=== PATIENT | female | born 1995 | race Caucasian/White ===

== ENCOUNTER 2016-10-09 21:15 | Emergency (ER) | payer OTHER ==
[~2016-10-09] VITALS: Ht 154.9 cm; Wt 47.5 kg
[~2016-10-09 21:15] MED LIST: ACET325T33 PO; NITR-58 PO; ONDA4TAB14 PO
[2016-10-09 21:46] VITALS: Ht 154.9 cm; Wt 47.5 kg
[2016-10-09] MEDS ORDERED: KETOROLAC 30 MG INJ IV STA (23:04)
[2016-10-09] MEDS ORDERED: ONDANSETRON 4 MG INJ IV STA (23:04)
--- NOTE | 2016-10-09 23:04 | ERD ---
ER Documentation Chief Complaint Date/Time DATE: 10/09/16 TIME: 22:59 Chief Complaint AP RLQ since 1400 with vomiting and feeling weak HPI 21-year-old female presented emergency room for right-sided abdominal pain that started around 2 PM today. Pain was described as sharp and non-radiating. She also stated that she has blood in your urine. Added that she is nauseous but no vomiting. He also stated that her pain is more on her right lower quadrant at this time. She has difficulty walking due to her right-sided abdominal pain. Denies headache, loss of consciousness, dizziness, blurry vision, changes in vision, photophobia, facial pain, ear pain, throat pain, difficulty swallowing, neck pain, shoulder pain, chest pain, cough, hemoptysis, abdominal pain, back pain, loss of appetite, vomiting, hematochezia, diarrhea, constipation, , the possibility of being , bladder and bowel incontinences, extremity weakness, extremity tenderness, numbness or tingling sensation, recent travel, recent exposure to illness, recent antibiotic use in the last 3 months, fever, chills. Allergy: No known drug allergies. PMH: Denies. Family medical history: Denies. AO LMP: "2 days ago." Stated that she has an IUD. Medications: Denies. Surgery: Denies. Primary Social History: Stated that she works at the [employer]. Denies smoking, use of alcohol, use of illegal drugs. ROS All systems reviewed and are negative except as per history of present illness. Medications Home Meds Active Scripts Acetaminophen* (Tylenol*) 325 Mg Tablet, 1 TAB PO Q6 Y for PAIN AND OR ELEVATED TEMP, #20 TAB Prov:DANIELLE WREN PA-C 05/03/16 Ondansetron (Ondansetron Odt) 4 Mg Tab.rapdis, 4 MG PO Q6H Y for NAUSEA AND/OR VOMITING, #10 TAB Prov:DANIELLE WREN PA-C 05/03/16 Nitrofurantoin Monohyd Macrocr* (Macrobid*) 100 Mg Capsr, 100 MG PO BID for 7 Days, CAP Prov:DANIELLE WREN PA-C 05/03/16 Allergies Allergies: Coded Allergies: No Known Allergy (Unverified , 12/22/13) PMhx/Soc History of Surgery: No Anesthesia Reaction: No Hx Neurological Disorder: No Hx Respiratory Disorders: No Hx Cardiac Disorders: No Hx Psychiatric Problems: No Hx Miscellaneous Medical Probl: Yes (UTI) Hx Alcohol Use: No Hx Substance Use: No Hx Tobacco Use: No Smoking Status: Never smoker Physical Exam Vitals Vital Signs Date Time Temp Pulse Resp B/P Pulse Ox O2 Delivery O2 Flow Rate FiO2 10/09/16 21:46 99.4 80 20 144/67 100 Physical Exam CONSTITUTIONAL: Well-appearing; well-nourished; in no apparent distress. HEAD: Normocephalic; atraumatic. EYES: Conjunctiva clear, sclera non-icteric, EOM intact. PERRL Ears: Hearing intact. EACs clear, TMs non-bulging, non-inflamed, translucent & mobile, ossicles normal appearance, No obstructions, no erythema, no discharges Nose: No obstructions. No polyps. No external lesions. Mucosa non-inflamed. No external lesions, septum and turbinates normal. No rhinorrhea. No discharges. Frontal sinus is non-tender to palpation. Maxillary sinus is non-tender to palpation. MOUTH: Moist mucous membranes, no lesion, no obstructions, no vesicles, no thrush, patent airway Throat: Uvula in midline. Right tonsil is +1 with no erythema, no exudate. Left tonsil is +1 with no erythema, no exudate. Tolerating secretions well. Good gag reflex. Patent airway. Neck: Supple, without lesions, bruits, or adenopathy. No mass. Thyroid non- enlarged and non-tender to palpation. CHEST: Symmetrical chest. Respirations even and not labored. No retractions noted. CARDIOVASCULAR: Normal S1, S2. RRR. No murmurs, gallops. RESPIRATORY: Normal chest excursion with respiration; breath sounds clear and equal bilaterally; no wheezes, rhonchi, or rales. Breathing even and unlabored. Speaking in clear, full, and complete sentences w/ ease. ABDOMEN: Normal bowel sounds normal. Soft, round, non-distended, non-guarding, no organomegaly, no masses, no pulsating abdominal mass. No hernia. No peritoneal signs. Right lower abdominal tenderness on light and deep palpation. Has some mild rebound on palpation to right lower abdominal area. Patient developed right sided abdominal pain after jumping twice. Positive and Inez sign. : Right-sided CVA tenderness. BACK: Symmetrical shoulder. Spine is midline without deformity, tenderness. No evidence of trauma or deformity. PELVIS: Stable pelvis. No evidence of trauma or deformity. MUSCULOSKELETAL: Normal gait and station. No misalignment, asymmetry, crepitation, defects, tenderness, masses, effusions, decreased range of motion, instability, atrophy or abnormal strength or tone in the head, neck, spine, ribs , pelvis or extremities. No calf tenderness. NEUROVASCULAR: Distal pulses are present. Pedal pulse are present, equal, and normal. Capillary refills are < 2 seconds. NEUROLOGIC: Alert and oriented x4. Speaks full and clear sentences. Cranial Nerves II-XII normal. Sensation to pain, touch, and proprioception normal. Grossly unremarkable. No neurologic deficits. Romberg test is negative. PSYCHOLOGICAL: The patients mood and manner are appropriate. No hallucinations , delusions. Not SI. Not HI. Has the capacity to decide for self SKIN: Normal for age and ethnicity; warm; dry; good turgor; no apparent lesions or exudates. No rashes, hives, discoloration. Intact. Result Diagram: 10/09/16 2325 10/09/16 2325 Results 24 hrs Laboratory Tests Test 10/09/16 23:25 10/10/16 00:54 White Blood Count 7.510^3/ul Red Blood Count 4.1810^6/ul Hemoglobin 13.1g/dl Hematocrit 38.1% Mean Corpuscular Volume 91.1fl Mean Corpuscular Hemoglobin 31.3pg Mean Corpuscular Hemoglobin Concent 34.4g/dl Red Cell Distribution Width 12.4% Platelet Count 00247^3/UL Mean Platelet Volume 10.6fl Neutrophils % 75.7% Lymphocytes % 11.8% Monocytes % 11.5% Eosinophils % 0.3% Basophils % 0.3% Nucleated Red Blood Cells % 0.0/100WBC Neutrophils # 5.710^3/ul Lymphocytes # 0.910^3/ul Monocytes # 0.910^3/ul Eosinophils # 0.010^3/ul Basophils # 0.010^3/ul Nucleated Red Blood Cells # 0.010^3/ul Sodium Level 141mmol/L Potassium Level 3.7mmol/L Chloride Level 105mmol/L Carbon Dioxide Level 28mmol/L Anion Gap 12 Blood Urea Nitrogen 10mg/dl Creatinine 0.87mg/dl Glucose Level 101mg/dl Calcium Level 9.2mg/dl Total Bilirubin 0.5mg/dl Direct Bilirubin 0.00mg/dl Indirect Bilirubin 0.5mg/dl Aspartate Amino Transf (AST/SGOT) 21IU/L Alanine Aminotransferase (ALT/SGPT) 9IU/L Alkaline Phosphatase 60IU/L Total Protein 8.1g/dl Albumin 4.3g/dl Globulin 3.80g/dl Albumin/Globulin Ratio 1.13 Amylase Level 98U/L Lipase 117U/L Serum HCG, Qualitative NEGATIVE Urine Color LT. YELLOW Urine Clarity CLEAR Urine pH 6.5 Urine Specific [place] 1.010 Urine Ketones NEGATIVE Urine Nitrite NEGATIVE Urine Bilirubin NEGATIVE Urine Urobilinogen 0.2 E.U./dL Urine Leukocyte Esterase NEGATIVE Urine Microscopic RBC 0-2/HPF Urine Microscopic WBC 0-2/HPF Urine Squamous Epithelial Cells FEW Urine Bacteria RARE Urine Hemoglobin TRACE Urine Glucose NEGATIVE% Urine Total Protein 2+ Current Medications Medications (Trade) Dose Ordered Sig/Antonio Route PRN Reason Start Time Stop Time Status Last Admin Dose Admin Ondansetron HCl (Zofran Inj) 4 mg ONCE STAT IV 10/09/16 23:04 10/09/16 23:07 DC 10/09/16 23:48 Ketorolac Tromethamine (Toradol) 30 mg ONCE STAT IV 10/09/16 23:04 10/09/16 23:07 DC 10/09/16 23:48 Procedures/MDM Examination: See physical examination. Disease process, medical treatment was explained to the patient and family member. They verbalized understanding and agreed with the diagnostic tests, medical treatment, and follow-up care. Radiology: CT of the abdomen and pelvis Impression: 1. Particular material in mildly distended stomach. 2. No CT evidence for appendicitis. 3. Shotty mesenteric lymph nodes. 4. Intrauterine device. 01:[address] Tobias, the radiologist who read the CT of the abdomen and pelvis. I asked him what he meant by "particulate material in mildly distended stomach" ? He said it is a food particle and nothing acute. Blood works: Reviewed. POC urine : Negative. Urinalysis: Treatment: IV insertion. Toradol IV. Zofran IV. Re-evaluation: Denies pain. No right upper abdominal tenderness. No right lower abdominal tenderness. No pelvic tenderness. No CVA tenderness. Ambulatory with steady gait. Able to jump 5 times without abdominal pain. No nausea and vomiting. Consultation: None. Differential diagnosis: Appendicitis versus nephrolithiasis Medical decision makin-year-old female presented emergency room for right- sided abdominal pain that started around 2 PM today. Pain was described as sharp and non-radiating. She also stated that she has blood in your urine. Added that she is nauseous but no vomiting. He also stated that her pain is more on her right lower quadrant at this time. She has difficulty walking due to her right-sided abdominal pain. Patient's complaint, patient's history about her complaint, patient's presentation, my physical findings, diagnostic test results, my reevaluation are consistent with my final diagnosis of abdominal pain. Medications prescribed are the following: Motrin. Tylenol. Zofran. Patient and family member are made aware of the side effects and adverse reactions of the medications prescribed. Instructed on when to seek emergent and medical attention in case allergic/anaphylactic reactions or severe side effects and or adverse reactions to medications. Patient and family member verbalized understanding. Patient instructed Instructed to follow-up with his PCP in 24-48 hours. Patient stated that she will see her primary care physician the next 24 hours. Instructed to Call 911 for chest pain, shortness of breath. Advised to come back here in ED as soon as possible for severity of symptoms which includes but not limited to: any new symptoms; shortness of breath/difficulty of breathing; cardiovascular changes; severe gastrointestinal symptoms; signs and symptoms of bleeding and or infection; signs of compartment syndrome/neurovascular changes; neurological changes/deficits. Patient and family member verbalized understanding. Upon discharge, patient is alert and oriented x 4, speaks full and clear sentences, denies pain, has no neurological deficits, has no neurovascular deficits, difficulty of breathing. Breathing even and unlabored. Lung sounds are clear to auscultation. Not in distress. Appears comfortable. Ambulatory with steady gait. Appears satisfied with care provided here in ED. Departure Diagnosis: Primary Impression: Abdominal pain Condition: Good Additional Instructions: Patient instructed Instructed to follow-up with his PCP in 24-48 hours. Patient stated that she will see her primary care physician the next 24 hours. Instructed to Call 911 for chest pain, shortness of breath. Advised to come back here in ED as soon as possible for severity of symptoms which includes but not limited to: any new symptoms; shortness of breath/difficulty of breathing; cardiovascular changes; severe gastrointestinal symptoms; signs and symptoms of bleeding and or infection; signs of compartment syndrome/neurovascular changes; neurological changes/deficits. Patient and family member verbalized understanding. VIVI MARTINES Oct 09, 2016 23:04
[2016-10-09 23:34] LABS: ADD SCAN DIFF NO
[2016-10-09 23:36] LABS: BASOPHILS % 0.3 % (0.0-2.0); EOSINOPHILS % 0.3 % (0.0-7.0); HEMATOCRIT 38.1 % (37.0-47.0); HEMOGLOBIN 13.1 g/dl (12.0-16.0); LYMPHOCYTES # 0.9 10^3/ul (0.8-2.9); LYMPHOCYTES % 11.8 % (18.0-55.0); MEAN CORPUSCULAR HEMOGLOBIN 31.3 pg (29.0-33.0); MEAN CORPUSCULAR HGB CONC 34.4 g/dl (32.0-37.0); MEAN CORPUSCULAR VOLUME 91.1 fl (72.0-104.0); MEAN PLATELET VOLUME 10.6 fl (7.4-10.4); MONOCYTE # 0.9 10^3/ul (0.3-0.9); MONOCYTES % 11.5 % (0.0-13.0); NEUTROPHIL # 5.7 10^3/ul (1.6-7.5); NEUTROPHILS % 75.7 % (30.0-74.0); PLATELET COUNT 263 10^3/UL (140-415); RED BLOOD COUNT 4.18 10^6/ul (4.20-5.40); RED CELL DISTRIBUTION WIDTH 12.4 % (11.5-14.5); WHITE BLOOD COUNT 7.5 10^3/ul (4.8-10.8)
[2016-10-10] LABS: ALBUMIN 4.3 g/dl (3.3-4.9); ALBUMIN/GLOBULIN RATIO 1.13; BILIRUBIN,INDIRECT 0.5 mg/dl (0-1.1); BILIRUBIN,TOTAL 0.5 mg/dl (0.2-1.3); CALCIUM 9.2 mg/dl (8.4-10.2); CREATININE 0.87 mg/dl (0.44-1.00); POTASSIUM 3.7 mmol/L (3.5-5.1); TOTAL PROTEIN 8.1 g/dl (6.1-8.1)
--- NOTE | 2016-10-10 00:20 | RADRPT ---
PROCEDURE: CT ABDOMEN/PELVIS WITHOUT CONTRAST CLINICAL INDICATION: 21-year-old female with right lower quadrant pain, nausea and vomiting. The patient has a history of urinary tract infection. TECHNIQUE: The study was performed utilizing a [employer] VCT 64-slice CT scanner. Direct axia l sections were obtained through the abdomen and pelvis without the use of intravenous contrast mate rial. Sagittal and coronal reformations were obtained. One or more of the following dose reduction t echniques were utilized: automated exposure control, adjustment of the mA and/or kV according to pat ient's size or use of iterative reconstruction technique. [facility] CTD/vol = 6.9 mGy; Total Exam DLP = 331.8 mGy-cm. COMPARISON: None. FINDINGS: The lung bases are unremarkable. There is no evidence for significant pleural effusion. The liver has a normal size and contour without focal areas of abnormal density. No intrahepatic nor extrahepa tic biliary ductal dilatation is seen. The gallbladder is decompressed but without significant wall thickening, calcified stones or pericholecystic fluid. The pancreas is without areas of abnormal att enuation. The spleen is identified and has a normal size without abnormal density. The adrenal glan ds are unremarkable. The kidneys are without abnormal density. Mild rotational abnormality are seen within the kidneys bilaterally. No hydroureteronephrosis nor nephroureterolithiasis is evident. The urinary bladder contains urine. There is particular material within the distended stomach. There is no evidence for bowel obstruction. The appendix is visualized and is without abnormal thickening o r surrounding inflammatory reaction. There is an intrauterine device within the uterus. There is no significant free fluid. Shotty mesenteric lymph nodes are present. There is umbilical metallic pi ercing noted. The aortoiliac vessels are without aneurysmal dilatation. The osseous structures are i ntact. IMPRESSION: 1. Particular material in mildly distended stomach. 2. No CT evidence for appendicitis. 3. Shotty mesenteric lymph nodes. 4. Intrauterine device. .Prosper Tobias MD, MD Date Time Electronically viewed and signed by .Prosper Tobias MD, on 10/10/2016 00:19 .M/
[2016-10-10 01:36] LABS: ADD UMIC YES; URINE BILIRUBIN (Dip) NEGATIVE (NEGATIVE); URINE BLOOD (Dip) TRACE (NEGATIVE); URINE COLOR LT. YELLOW (YELLOW); URINE GLUCOSE (Dip) NEGATIVE (NEGATIVE); URINE KETONES (Dip) NEGATIVE (NEGATIVE); URINE LEUKOCYTE ESTERASE (Dip) NEGATIVE (NEGATIVE); URINE NITRITE (Dip) NEGATIVE (NEGATIVE); URINE TOTAL PROTEIN (Dip) 2+ (NEGATIVE); URINE UROBILINOGEN (Dip) 0.2 E.U./dL (0.1-1.0)
[2016-10-10 01:50] LABS: BACTERIA,URINE RARE; SQUAMOUS EPITHELIAL CELL,UR FEW; URINE RBCS 0-2 /HPF (0)
[2016-10-10] MEDS ORDERED: ONDA4TAB14 PO (01:59)
[2016-10-10] MEDS ORDERED: ACET500C5 PO (01:59)
[2016-10-10] MEDS ORDERED: IBUP-1542 PO (01:59)
== END 2016-10-10 02:45 | disposition home or self-care (01) ==
LOC: FTE 21:15
DX: R10.31 Right lower quadrant pain (principal); R11.0 Nausea
CPT/HCPCS: 36415; 74176; 80053; 81001; 81003; 82150; 83690; 84703; 85025; 87086; 96374; 96375; J1885; J2405; Z7502

== ENCOUNTER 2017-04-18 08:44 | Emergency (ER) | payer OTHER ==
[~2017-04-18] VITALS: Ht 157.5 cm; Wt 47.0 kg
[~2017-04-18 08:44] MED LIST changes: +ACET500C5 PO; +IBUP-1542 PO
[2017-04-18 08:46] VITALS: Ht 157.5 cm; Wt 47.0 kg
[2017-04-18] MEDS ORDERED: KETOROLAC 60 MG INJ IM STA (08:56)
--- NOTE | 2017-04-18 09:09 | ERD ---
ER Documentation Chief Complaint Date/Time DATE: 04/18/17 TIME: 08:50 Chief Complaint Complains of generalized pain after a fall last night HPI 21-year-old female presented department for generalized pain after a fall last night. Patient stated that she was drunk when she tripped and fell landed on her left great. Denies headache, dizziness, blurred vision, changes in vision, loss of consciousness, neck pain, neck stiffness, abdominal pain, nausea, vomiting, constipation, diarrhea, loss of bowel and bladder control, urinary symptoms, recent long travel, recent travel, recent exposure to any illness, numbness or tingling sensation, difficulty walking, fever, chills. No known drug allergies. No past medical history. No surgeries. Does not take any prescription medications at home. Social: Works at [employer] staff. LMP: Stated it was 2 weeks ago. A0. Smokes medical marijuana. Occasional drink alcoholic beverages denies use of illegal drugs. ROS All systems reviewed and are negative except as per history of present illness. Medications Home Meds Active Scripts Ibuprofen* (Motrin*) 600 Mg Tab, 600 MG PO Q8, #30 TAB Prov:PASILABANVIVI F 04/18/17 Cyclobenzaprine Hcl* (Cyclobenzaprine Hcl*) 10 Mg Tablet, 10 MG PO Q12 Y for MUSCLE SPASMS, #15 TAB Prov:PASILABANVIVI F 04/18/17 Acetaminophen* (Tylophen*) 500 Mg Capsule, 2 CAP PO Q8H Y for PAIN AND OR ELEVATED TEMP, #20 CAP Prov:PASILAVIVI OCONNOR F 10/10/16 Ondansetron (Ondansetron Odt) 4 Mg Tab.rapdis, 4 MG PO Q6H Y for NAUSEA AND/OR VOMITING, #10 TAB Prov:PASILABANMARGRETAR F 10/10/16 Ibuprofen* (Motrin*) 600 Mg Tab, 600 MG PO Q6H Y for PAIN AND OR ELEVATED TEMP, #30 TAB Prov:PASILABANMARGRETAR F 10/10/16 Acetaminophen* (Tylenol*) 325 Mg Tablet, 1 TAB PO Q6 Y for PAIN AND OR ELEVATED TEMP, #20 TAB Prov:DANIELLE WREN PA-C 05/03/16 Ondansetron (Ondansetron Odt) 4 Mg Tab.rapdis, 4 MG PO Q6H Y for NAUSEA AND/OR VOMITING, #10 TAB Prov:DANIELLE WREN PA-C 05/03/16 Nitrofurantoin Monohyd Macrocr* (Macrobid*) 100 Mg Capsr, 100 MG PO BID for 7 Days, CAP Prov:DANIELLE WREN PA-C 05/03/16 Allergies Allergies: Coded Allergies: No Known Allergy (Unverified , 04/18/17) PMhx/Soc History of Surgery: No Anesthesia Reaction: No Hx Neurological Disorder: No Hx Respiratory Disorders: No Hx Cardiac Disorders: No Hx Psychiatric Problems: No Hx Miscellaneous Medical Probl: Yes (UTI) Hx Alcohol Use: No Hx Substance Use: No Hx Tobacco Use: No Physical Exam Vitals Vital Signs Date Time Temp Pulse Resp B/P Pulse Ox O2 Delivery O2 Flow Rate FiO2 04/18/17 08:46 98.1 88 20 123/78 99 Physical Exam Const: [] Head: Atraumatic Eyes: Normal Conjunctiva ENT: Normal External Ears, Nose and Mouth. Neck: Full range of motion..~ No meningismus. Resp: Clear to auscultation bilaterally Cardio: Regular rate and rhythm, no murmurs Abd: Soft, non tender, non distended. Normal bowel sounds Skin: No petechiae or rashes Back: No midline or flank tenderness Ext: No cyanosis, or edema. Left upper extremity (humerus area has mild left leg but is not slight abrasion). Left shoulder has good and full range of motion. Left elbow is good and full range of motion. Left hand is good and full function of extension flexion with a score of 5/5. C-spine/T-spine/L- spine are in midline with good range of motion and has no swelling/discoloration /bulging/deformity/point of tenderness. Moves all 4 extremities. No saddle anesthesia. No numbness or tingling sensation. No neurovascular deficits. Neur: Awake and alert. No neurological deficits. Romberg test is negative. Psych: Normal Mood and Affect Results 24 hrs Current Medications Medications (Trade) Dose Ordered Sig/Antonio Route PRN Reason Start Time Stop Time Status Last Admin Dose Admin Ketorolac Tromethamine (Toradol) 60 mg ONCE STAT IM 04/18/17 08:56 04/18/17 08:58 DC 04/18/17 09:05 Procedures/MDM 21-year-old female presented department for generalized pain after a fall last night. Patient stated that she was drunk when she tripped and fell landed on her left great. Denies headache, dizziness, blurred vision, changes in vision, loss of consciousness, neck pain, neck stiffness, abdominal pain, nausea, vomiting, constipation, diarrhea, loss of bowel and bladder control, urinary symptoms, recent long travel, recent travel, recent exposure to any illness, numbness or tingling sensation, difficulty walking, fever, chills. No known drug allergies. No past medical history. No surgeries. Does not take any prescription medications at home. Social: Works at [employer] staff. LMP: Stated it was 2 weeks ago. A0. Smokes medical marijuana. Occasional drink alcoholic beverages denies use of illegal drugs. Physical exam: Left upper extremity (humerus area has mild left leg but is not slight abrasion). Left shoulder has good and full range of motion. Left elbow is good and full range of motion. Left hand is good and full function of extension flexion with a score of 5/5. No neurovascular deficits. Left chest area has tenderness but has no crepitus. Lung sounds clear to auscultation. Patient agreed to have a diagnostic test/examination, treatment, plan of care, follow-up care. POC urine : Negative. X-ray of the chest: No acute disease. Treatment: Toradol IM. Reevaluation: Denies headache, dizziness, blurred vision, neck pain, shoulder pain, chest pain, back pain, abdominal pain, nausea, vomiting, urinary symptoms. C-spine/T-spine/L-spine are in midline with good range of motion and has no swelling/discoloration/bulging/deformity/point of tenderness. Moves all 4 extremities. No saddle anesthesia. No numbness or tingling sensation. No neurovascular deficits. No neurological deficits. Romberg test is negative. Differential diagnosis: Fracture versus dislocation versus displacement versus contusion versus sprain Final diagnosis: Multiple contusion and musculoskeletal spasms secondary to fall. Prescription: Flexeril. Motrin. Follow-up with primary care physician the next 24-48 hours. Come back to emergency department for any new symptoms or any worsening symptoms. All questions and concerns are answered. Patient verbalized understanding and agreed with the plan of care. Hemodynamically stable on discharge. Departure Diagnosis: Primary Impression: Muscle spasm Additional Impression: Contusion Condition: Stable Additional Instructions: Follow-up with primary care physician the next 24-48 hours. Come back to emergency department for any new symptoms or any worsening symptoms. All questions and concerns are answered. Patient verbalized understanding and agreed with the plan of care. VIVI MARTINES Apr 18, 2017 09:07
--- NOTE | 2017-04-18 10:36 | RADRPT ---
PROCEDURE: XR Chest. CLINICAL INDICATION: chest pain TECHNIQUE: PA and lateral views of the chest were obtained COMPARISON: 12/22/13 FINDINGS: The heart and mediastinum are within normal limits. The lungs are clear. There is no pleural effusion or pneumothorax. The bones and soft tissues are unremarkable. RPTAT: AA IMPRESSION: No acute disease. .Jarret Banks MD, MD Date Time Electronically viewed and signed by .Jarret Banks MD, MD on 04/18/2017 10:36 .S/
[2017-04-18] MEDS ORDERED: CYCL-319 PO (10:49)
[2017-04-18] MEDS ORDERED: IBUP-1542 PO (10:49)
[2017-04-18 11:08] VITALS: BP 127/78; RESP 20
== END 2017-04-18 11:09 | disposition home or self-care (01) ==
LOC: FTE 08:44
DX: S40.022A Contusion of left upper arm, initial encounter (principal); R07.9 Chest pain, unspecified; W01.0XXA Fall on same level from slipping, tripping and stumbling without subsequent striking against object, initial encounter; Y92.9 Unspecified place or not applicable
CPT/HCPCS: 71020; 96372; J1885; Z7502

== ENCOUNTER 2018-01-30 11:15 | Emergency (ER) | END 2018-01-30 13:00 | disposition home or self-care (01) ==

== ENCOUNTER 2018-10-02 16:31 | Emergency (ER) | payer OTHER ==
[~2018-10-02] VITALS: Ht 157.5 cm; Wt 48.3 kg
[~2018-10-02 16:31] MED LIST changes: +AMOX1TAB9 PO; +CYCL10TA7 PO; +IBUP800T48 PO; +SULF15DR19 BOTH EYES
[2018-10-02 16:37] VITALS: Ht 157.5 cm; Wt 48.3 kg
[2018-10-02] MEDS ORDERED: METHYLPREDNISOLONE ACET 80 MG/ML 1 ML IM ONE (21:00)
[2018-10-02] MEDS ORDERED: DIPHENHYDRAMINE 2.5 MG/ML 5ML CUP PO ONE (21:00)
[2018-10-02] MEDS ORDERED: DEXAMETHASONE 10 MG/ML 1 ML INJ IM ONE (21:00)
[2018-10-02] MEDS ORDERED: METHYLPREDNISOLONE ACET 40 MG/ML 1 ML IM ONE (21:00)
[2018-10-02] MEDS ORDERED: BEN25 PO (22:09)
[2018-10-02] MEDS ORDERED: CETI10CA PO (22:11)
[2018-10-02 22:22] VITALS: BP 105/60; PULSE 66; RESP 16
--- NOTE | 2018-10-04 05:27 | ERD ---
ER Documentation Chief Complaint Chief Complaint pt c/o allergic reaction, rash to face, arms, chest x 3wks HPI History of Present Illness: Patient coming in with complaint of allergic reac tion to her face, arms, chest for 3 weeks. Patient reports moving in with her mother approximately 1 month ago who has a cat, and she thinks that might be the possible trigger. Patient denies shortness of breath or respiratory distress, difficulty swallowing. At home pharmacological/nonpharmacological treatment for symptoms: DENIES Denies social concerns; Denies recent foreign travel ROS All systems reviewed and are negative except as per history of present illness. Medications Home Meds Active Scripts Cetirizine Hcl* (Zyrtec*) 10 Mg Capsule, 10 MG PO QAM, #10 TAB.CHEW Prov:DUKE SALDIVAR NP 10/02/18 Diphenhydramine Hcl* (Benadryl*) 25 Mg Cap, 25 MG PO QHS PRN for ITCHING/RASH, #30 TAB Prov:DUKE SALDIVAR NP 10/02/18 Ibuprofen* (Motrin*) 800 Mg Tab, 800 MG PO Q6H PRN for PAIN AND OR ELEVATED TEMP, #30 TAB Prov:VIVI MARTINES 01/30/18 Amoxicillin/Potassium Clav (Amox-Clav 500-125 mg Tablet) 500-125 mg Tab, 1 TAB PO BID for 7 Days, TAB Prov:VIVI MARTINES 01/30/18 Sulfacetamide Sodium* (Bleph-10*) 10%-15 Ml Opht Drops, 1 DROP BOTH EYES Q2H for 7 Days, #1 EA Prov:VIVI MARTINES 01/30/18 Ibuprofen* (Motrin*) 600 Mg Tab, 600 MG PO Q8, #30 TAB Prov:VIVI MARTINES 04/18/17 Cyclobenzaprine Hcl* (Cyclobenzaprine Hcl*) 10 Mg Tablet, 10 MG PO Q12 PRN for MUSCLE SPASMS, #15 TAB Prov:VIVI MARTINES 04/18/17 Acetaminophen* (Tylophen*) 500 Mg Capsule, 2 CAP PO Q8H PRN for PAIN AND OR ELEVATED TEMP, #20 CAP Prov:VIVI MARTINES 10/10/16 Ondansetron (Ondansetron Odt) 4 Mg Tab.rapdis, 4 MG PO Q6H PRN for NAUSEA AND/OR VOMITING, #10 TAB Prov:VIVI MARTINES 10/10/16 Ibuprofen* (Motrin*) 600 Mg Tab, 600 MG PO Q6H PRN for PAIN AND OR ELEVATED TEMP, #30 TAB Prov:VIVI MARTINES 10/10/16 Acetaminophen* (Tylenol*) 325 Mg Tablet, 1 TAB PO Q6 PRN for PAIN AND OR ELEVATED TEMP, #20 TAB Prov:DANIELLE WREN PA-C 05/03/16 Ondansetron (Ondansetron Odt) 4 Mg Tab.rapdis, 4 MG PO Q6H PRN for NAUSEA AND/OR VOMITING, #10 TAB Prov:DANIELLE WREN PA-C 05/03/16 Nitrofurantoin Monohyd Macrocr* (Macrobid*) 100 Mg Capsr, 100 MG PO BID for 7 Days, CAP Prov:DANIELLE WREN PA-C 05/03/16 Allergies Allergies: Coded Allergies: No Known Allergy (Unverified , 04/18/17) PMhx/Soc History of Surgery: No Anesthesia Reaction: No Hx Neurological Disorder: No Hx Respiratory Disorders: No Hx Cardiac Disorders: No Hx Psychiatric Problems: No Hx Miscellaneous Medical Probl: Yes (UTI) Hx Alcohol Use: No Hx Substance Use: No Hx Tobacco Use: No FmHx Family History: diabetes Physical Exam Vitals Vital Signs Date Temp Pulse Resp B/P (MAP) Pulse Ox O2 O2 Flow FiO2 Time Delivery Rate 10/02/18 98.0 66 16 105/60 98 Room Air 22:22 (75) 10/02/18 98.1 88 18 137/76 99 16:37 (96) Physical Exam Const: No acute distress Head: Atraumatic Eyes: Normal Conjunctiva ENT: Normal External Ears, Nose and Mouth. Neck: Full range of motion. No meningismus. Resp: Clear to auscultation bilaterally Cardio: Regular rate and rhythm, no murmurs Abd: Soft, non tender, non distended. Normal bowel sounds Skin: No petechiae, contact dermatitis-like rash noted to chest and right side of face and left arm and back Back: No midline or flank tenderness Ext: No cyanosis, or edema Neur: Awake and alert Psych: Normal Mood and Affect Results 24 hrs Current Medications Medications Dose Sig/Antonio Start Time Status Last (Trade) Ordered Route PRN Stop Time Admin Dose Reason Admin 8 mg ONCE ONCE 10/02/18 DC 10/02/18 Dexamethasone IM 21:00 21:00 (Decadron) 10/02/18 21:01 80 mg ONCE ONCE 10/02/18 DC Methylprednis IM 21:00 olone 10/02/18 21:00 Acetate (Depo-Medrol 80 Mg/ml 1 ml) 25 mg ONCE ONCE 10/02/18 DC 10/02/18 Diphenhydrami PO 21:00 20:53 ne HCl 10/02/18 21:01 (Benadryl Liquid Cup) 80 mg ONCE ONCE 10/02/18 DC 10/02/18 Methylprednis IM 21:00 21:00 olone 10/02/18 21:01 Acetate (Depo-Medrol 40 Mg/ml 1 ml) Procedures/MDM ED course includes a thorough examination and history. Medications: Methylprednisolone/Depo-Medrol for inflammatory; diphenhydramine for antihistamine Imaging: Labs: Low suspicion for life-threatening medical emergency. Low suspicion for airway emergency, breathing emergency, circles or emergency. Patient breathing without difficulty. Otherwise healthy patient presenting with constellation of symptoms likely representing uncomplicated contact dermatitis as characterized by history, physical exam findings. No respiratory distress, otherwise relatively well appearing and nontoxic. Patient educated on diagnoses, prescriptions, follow-up care, return precautions. Strict return precautions given for worsening condition; questions answered discharge. Disposition for discharge with followup in 2 days with PCP/clinic. Departure Diagnosis: Primary Impression: Contact dermatitis Condition: Stable Patient Instructions: Contact Dermatitis Referrals: [facility] YOU HAVE RECEIVED A MEDICAL SCREENING EXAM AND THE RESULTS INDICATE THAT YOU DO NOT HAVE A CONDITION THAT REQUIRES URGENT TREATMENT IN THE EMERGENCY DEPARTMENT. FURTHER EVALUATION AND TREATMENT OF YOUR CONDITION CAN WAIT UNTIL YOU ARE SEEN IN YOUR DOCTORS OFFICE WITHIN THE NEXT 1-2 DAYS. IT IS YOUR RESPONSIBILITY TO MAKE AN APPOINTMENT FOR FOLOW-UP CARE. IF YOU HAVE A PRIMARY DOCTOR --you should call your primary doctor and schedule an appointment IF YOU DO NOT HAVE A PRIMARY DOCTOR YOU CAN CALL OUR PHYSICIAN REFERRAL HOTLINE AT IF YOU CAN NOT AFFORD TO SEE A PHYSICIAN YOU CAN CHOSE FROM THE FOLLOWING [facility] [address] [facility] [address] [facility] [address] [facility] [address] [facility] [address]. [facility] [address] [facility]. [facility] YOU HAVE RECEIVED A MEDICAL SCREENING EXAM AND THE RESULTS INDICATE THAT YOU DO NOT HAVE A CONDITION THAT REQUIRES URGENT TREATMENT IN THE EMERGENCY DEPARTMENT. FURTHER EVALUATION AND TREATMENT OF YOUR CONDITION CAN WAIT UNTIL YOU ARE SEEN IN YOUR DOCTORS OFFICE WITHIN THE NEXT 1-2 DAYS. IT IS YOUR RESPONSIBILITY TO MAKE AN APPOINTMENT FOR FOLOW-UP CARE. IF YOU HAVE A PRIMARY DOCTOR --you should call your primary doctor and schedule and appointment IF YOU DO NOT HAVE A PRIMARY DOCTOR YOU CAN CALL OUR PHYSICIAN REFERRAL HOTLINE AT . IF YOU CAN NOT AFFORD TO SEE A PHYSICIAN YOU CAN CHOSE FROM THE FOLLOWING [facility] INSTITUTIONS: [facility] [address] [place] [address] [facility] [address] [place] [address] [facility] [address] [place] [address] Additional Instructions: Thank you very much for allowing us to participate in your care. Your health and safety is our top priority at [facility]. It is important to read all discharge instructions and education provided in your discharge packet. Call your primary care doctor TOMORROW for an appointment during the next 2-4 days and bring all the information and medications prescribed. It is important to also try to get a referral from your primary care doctor for an hot top liner so he can get tested for possible irritants that could be worsening your rash/itching. Have prescriptions filled and follow precisely the directions on the label. If the symptoms get worse and your provider is unavailable, return to the Emergency Department immediately. DUKE SALDIVAR NP Oct 04, 2018 05:27
== END 2018-10-02 22:21 | disposition home or self-care (01) ==
LOC: FTE 16:31
DX: L25.9 Unspecified contact dermatitis, unspecified cause (principal)
CPT/HCPCS: J1030; J1100; Z7610; 96372; J1040